=== PATIENT | female | born 1965 | race Caucasian/White ===

== ENCOUNTER 2020-04-18 19:37 | Emergency (ER) | payer BC, OTHER ==
--- NOTE | 2020-04-18 20:19 | RAD REPORT ---
EXAM DESCRIPTION: RAD - Wrist Right 3 View - 04/18/2020 8:11 pm CLINICAL HISTORY: PAIN Pain COMPARISON: <Comparisons> FINDINGS: No fracture or dislocation seen. No foreign body or other soft tissue abnormality. IMPRESSION: Negative examination.
--- NOTE | 2020-04-18 20:28 | EDPHYS ---
Physician Documentation [facility] Name: Keyanna Salinas Age: 54 yrs Sex: Female : 1965 Arrival Date: 04/18/2020 Time: 19:40 Bed 25 Private MD: ED Physician Zheng Doyle HPI: 04/18 19:58 This 54 yrs old Female presents to ER via Unassigned with complaints of Fall rn Injury, Arm Injury. 19:58 Details of fall: The patient fell from a height, out of a tree. Onset: The rn symptoms/episode began/occurred 2 hour(s) ago. Associated injuries: The patient sustained right wrist. Severity of symptoms: At their worst the symptoms were moderate, in the emergency department the symptoms are unchanged. The patient has not experienced similar symptoms in the past. The patient has not recently seen a physician. Reports fall from tree house, 10-12 feet, was hanging, then fell, landed on right wrist/right knee/right ankle. Reports ambulatory and knee and ankle feel better, minimal pain, + right wrist pain and only on dorsiflexion. Denies head injury/LOC, remembers all events, no rib/chest pain/back pain/neck pain. . Historical: - Allergies: 19:45 Sulfa (Sulfonamide Antibiotics); jb4 - Home Meds: 19:45 Lisinopril Oral [Active]; Klonopin Oral [Active]; Alprazolam Oral [Active]; jb4 Chemotherapy Cream [Active]; - PMHx: 19:45 Hypertension; PTSD; Cancer; jb4 - PSHx: 19:45 Right arm; jb4 - Immunization history:: Adult Immunizations up to date. - Immunization history: Last tetanus immunization: - up to date. - Social history:: Smoking status: Patient denies any tobacco usage or history of. Patient uses alcohol, weekly. Patient/guardian denies using street drugs. - Family history:: not pertinent. - Hospitalizations: : No recent hospitalization is reported. ROS: 19:58 Constitutional: Negative for fever, chills, and weight loss, Eyes: Negative for injury, rn pain, redness, and discharge, Neck: Negative for injury, pain, and swelling, Cardiovascular: Negative for chest pain, palpitations, and edema, Respiratory: Negative for shortness of breath, cough, wheezing, and pleuritic chest pain, Abdomen/GI: Negative for abdominal pain, nausea, vomiting, diarrhea, and constipation, Back: Negative for injury and pain, MS/Extremity: + injury and pain to right wrist Skin: + abrasion right forearm Neuro: Negative for headache, weakness, numbness, tingling, and seizure. Exam: 19:58 Constitutional: This is a well developed, well nourished patient who is awake, alert, rn and in no acute distress. Ambulatory to room. Head/Face: Normocephalic, atraumatic. Eyes: Pupils equal round and reactive to light, Periorbital areas with no swelling, redness, or edema. Neck: Supple, full range of motion without nuchal rigidity, or vertebral point tenderness Skin: + superficial abrasion right volar forearm, no laceration. MS/ Extremity: Pulses equal, no cyanosis. Neurovascular intact. + mild pain with dorsiflexion right wrist, no bony tenderness of radius/ulna, no bony tenderness in hand. Minimal tenderness over right carpals. Neuro: Awake and alert, GCS 15, oriented to person, place, time, and situation. Cranial nerves II-XII grossly intact. Motor strength 5/5 in all extremities. Sensory grossly intact. Cerebellar exam normal. Normal gait. Vital Signs: 19:45 BP 185 / 88; Pulse 76; Resp 16; Temp 97.9; Pulse Ox 98% on R/A; Weight 65.77 kg (R); jb4 Height 5 ft. 4 in. (162.56 cm) (R); Pain 10/10; 20:45 BP 140 / 63; Pulse 88; Resp 16; Pulse Ox 98% on R/A; jb4 19:45 Body Mass Index 24.89 (65.77 kg, 162.56 cm) jb4 Jonny Coma Score: 19:45 Eye Response: spontaneous(4). Verbal Response: oriented(5). Motor Response: obeys jb4 commands(6). Total: 15. 20:45 Eye Response: spontaneous(4). Verbal Response: oriented(5). Motor Response: obeys jb4 commands(6). Total: 15. Trauma Score (Adult): 19:45 Eye Response: spontaneous(1); Verbal Response: oriented(1); Motor Response: obeys jb4 commands(2); Systolic BP: > 89 mm Hg(4); Respiratory Rate: 10 to 29 per min(4); Jonny Score: 15; Trauma Score: 12 20:45 Eye Response: spontaneous(1); Verbal Response: oriented(1); Motor Response: obeys jb4 commands(2); Systolic BP: > 89 mm Hg(4); Respiratory Rate: 10 to 29 per min(4); [place] Score: 15; Trauma Score: 12 MDM: 19:50 Patient medically screened. rn 20:26 Differential diagnosis: contusion, fracture, sprain, strain. Differential diagnosis: rn abrasion. Data reviewed: vital signs. Test interpretation: by ED physician or midlevel provider: plain radiologic studies, Xray right wrist neg for fracture/dislocation. Counseling: I had a detailed discussion with the patient and/or guardian regarding: the historical points, exam findings, and any diagnostic results supporting the discharge/admit diagnosis, radiology results, the need for outpatient follow up, to return to the emergency department if symptoms worsen or persist or if there are any questions or concerns that arise at home. Response to treatment: the patient's symptoms have mildly improved after treatment, and as a result, I will discharge patient. Special discussion: I discussed with the patient/guardian in detail that at this point there is no indication for admission to the hospital. It is understood, however, that if the symptoms persist or worsen the patient needs to return immediately for re-evaluation. 04/18 19:58 Order name: XRAY Wrist RIGHT 3 view; Complete Time: 20:25 rn 04/18 20:32 Order name: Splint - Volar Wrist Splint; Complete Time: 20:51 rn Administered Medications: 20:36 Drug: Motrin 800 mg Route: PO; jb4 20:45 Follow up: Response: No adverse reaction jb4 Disposition: 04/18/20 20:27 Discharged to Home. Impression: Contusion of right wrist, Unspecified sprain of right wrist. - Condition is Stable. - Discharge Instructions: Contusion, Wrist Pain, Wrist Sprain. - Medication Reconciliation Form, Thank You Letter, Antibiotic Education, Prescription Opioid Use form. - Follow up: Private Physician; When: As needed; Reason: Recheck today's complaints, Re-evaluation by your physician. - Problem is new. - Symptoms have improved. Signatures: Dispatcher [employer] EDMS Paulo Cornejo PA PA jmm Nieto, Roman, MD MD rn Bryson, James, RN RN jb4 Corrections: (The following items were deleted from the chart) 20:01 19:58 Constitutional: Negative for fever, chills, and weight loss, Eyes: Negative for rn injury, pain, redness, and discharge, Neck: Negative for injury, pain, and swelling, Cardiovascular: Negative for chest pain, palpitations, and edema, Respiratory: Negative for shortness of breath, cough, wheezing, and pleuritic chest pain, Abdomen/GI: Negative for abdominal pain, nausea, vomiting, diarrhea, and constipation, Back: Negative for injury and pain, MS/Extremity: + injury and pain to right wrist Skin: Negative for injury, rash, and discoloration, Neuro: Negative for headache, weakness, numbness, tingling, and seizure, rn 20:51 20:27 04/18/2020 20:27 Discharged to Home. Impression: Contusion of right wrist; jb4 Unspecified sprain of right wrist. Condition is Stable. Forms are Medication Reconciliation Form, Thank You Letter, Antibiotic Education, Prescription Opioid Use. Follow up: Private Physician; When: As needed; Reason: Recheck today's complaints, Re-evaluation by your physician. Problem is new. Symptoms have improved. rn
--- NOTE | 2020-04-18 20:28 | ER ---
Nurse's Notes [facility] Name: Keyanna Salinas Age: 54 yrs Sex: Female : 1965 Arrival Date: 04/18/2020 Time: 19:40 Bed 25 Private MD: Diagnosis: Contusion of right wrist;Unspecified sprain of right wrist Presentation: 04/18 19:45 Chief complaint: Patient states: I was helping my son measure for repairs on his tree jb4 house. I fell through a rotten spot on the deck and fell 10-12 feet. I am having pain in my right wrist that radiates to my collar bone that just wont go away. Its that same feeling you get with a broken bone, constant dull, throbbing and aching. 19:45 Care prior to arrival: None. Mechanism of Injury: Fall approximately 12 feet. Trauma jb4 event details: Injury occurred in the [facility]. 19:45 Acuity: DOMENICA 3 jb4 19:45 Method Of Arrival: Ambulatory jb4 19:45 Coronavirus screen: Client denies travel out of the [place] in the last 14 days. At this jb4 time, the client does not indicate any symptoms associated with coronavirus-19. Ebola Screen: Patient negative for fever greater than or equal to 101.5 degrees Fahrenheit, and additional compatible Ebola Virus Disease symptoms. Initial Sepsis Screen: Does the patient meet any 2 criteria? No. Patient's initial sepsis screen is negative. Does the patient have a suspected source of infection? No. Patient's initial sepsis screen is negative. Risk Assessment: Do you want to hurt yourself or someone else? Patient reports no desire to harm self or others. 19:45 Onset of symptoms was April 18, 2020. Transition of care: patient was not received jb4 from another setting of care. Trauma Activation: Alert Physician: ED Physician; Name: Yanira; Notified At: 20:00; Arrived At: 20:00 Physician: General Surgeon; Name: ; Notified At: 20:00; Arrived At: Physician: Radiology; Name: Jomar; Notified At: 20:00; Arrived At: 20:00 Physician: Respiratory; Name: ; Notified At: 20:00; Arrived At: Physician: Lab; Name: ; Notified At: 20:00; Arrived At: Historical: - Allergies: 19:45 Sulfa (Sulfonamide Antibiotics); jb4 - Home Meds: 19:45 Lisinopril Oral [Active]; Klonopin Oral [Active]; Alprazolam Oral [Active]; jb4 Chemotherapy Cream [Active]; - PMHx: 19:45 Hypertension; PTSD; Cancer; jb4 - PSHx: 19:45 Right arm; jb4 - Immunization history:: Adult Immunizations up to date. - Immunization history: Last tetanus immunization: - up to date. - Social history:: Smoking status: Patient denies any tobacco usage or history of. Patient uses alcohol, weekly. Patient/guardian denies using street drugs. - Family history:: not pertinent. - Hospitalizations: : No recent hospitalization is reported. Screenin:45 Abuse screen: Denies threats or abuse. Tuberculosis screening: No symptoms or risk jb4 factors identified. 19:45 Nutritional screening: No deficits noted. Fall Risk None identified. jb4 Primary Survey: 19:45 NO uncontrolled hemorrhage observed. A: The patient is alert. Airway: patent, No jb4 supplemental oxygen in use on arrival. Oral cavity: clear, gag reflex present, Trachea midline. Breathing/Chest: Respiratory pattern: regular, Respiratory effort: spontaneous, unlabored, Chest inspection: symmetrical rise and fall of the chest. Circulation: Pulses: palpable right radial artery. Skin color: pink, Skin temperature: warm, dry. Disability Alert. Exposure/Environment: All clothing and personal items were removed. Forensic evidence collection is not deemed to be indicated at this time. Items placed in patient belonging bag. A warming method has been applied: A warm blanket has been provided to the patient. 20:45 Reassessment Airway Airway Patent Oxygen No O2 Oral cavity Clear +Gag reflex jb4 Breathing/Chest Respiratory pattern Regular Respiratory effort Spontaneous Unlabored Circulation Pulses Palpable Color [place] Temperature Warm Dry Disability Alert. Secondary Survey: 19:45 HEENT: No deficits noted. Gastrointestinal: No deficits noted. : No deficits noted. jb4 No signs and/or symptoms were reported regarding the genitourinary system. Musculoskeletal: Circulation, motion, and sensation intact. Range of motion: intact in all extremities. Injury Description: Abrasion sustained to dorsal aspect of right forearm is scabbed, was sustained 1-2 hours ago. Assessment: 19:45 General: Appears in no apparent distress. uncomfortable, Behavior is calm, cooperative, jb4 appropriate for age. Pain: Complains of pain in right arm Pain radiates to right clavicle Pain currently is 10 out of 10 on a pain scale. Quality of pain is described as aching, dull, throbbing, Pain began 2 hours ago. Neuro: Level of Consciousness is awake, alert, obeys commands, Oriented to person, place, time, situation. Cardiovascular: Patient's skin is warm and dry. Respiratory: Airway is patent Respiratory effort is even, unlabored, Respiratory pattern is regular, symmetrical. GI: No signs and/or symptoms were reported involving the gastrointestinal system. : No signs and/or symptoms were reported regarding the genitourinary system. EENT: No signs and/or symptoms were reported regarding the EENT system. Derm: Skin is intact, Skin is pink, warm \T\ dry. Musculoskeletal: Circulation, motion, and sensation intact. Range of motion:. Injury Description: Abrasion sustained to dorsal aspect of right forearm is scabbed, was sustained 1-2 hours ago. 20:45 Reassessment: Patient appears in no apparent distress at this time. Patient and/or jb4 family updated on plan of care and expected duration. Pain level reassessed. Patient is alert, oriented x 3, equal unlabored respirations, skin warm/dry/pink. Vital Signs: 19:45 BP 185 / 88; Pulse 76; Resp 16; Temp 97.9; Pulse Ox 98% on R/A; Weight 65.77 kg (R); jb4 Height 5 ft. 4 in. (162.56 cm) (R); Pain 10/10; 20:45 BP 140 / 63; Pulse 88; Resp 16; Pulse Ox 98% on R/A; jb4 19:45 Body Mass Index 24.89 (65.77 kg, 162.56 cm) jb4 Jonny Coma Score: 19:45 Eye Response: spontaneous(4). Verbal Response: oriented(5). Motor Response: obeys jb4 commands(6). Total: 15. 20:45 Eye Response: spontaneous(4). Verbal Response: oriented(5). Motor Response: obeys jb4 commands(6). Total: 15. Trauma Score (Adult): 19:45 Eye Response: spontaneous(1); Verbal Response: oriented(1); Motor Response: obeys jb4 commands(2); Systolic BP: > 89 mm Hg(4); Respiratory Rate: 10 to 29 per min(4); Jonny Score: 15; Trauma Score: 12 20:45 Eye Response: spontaneous(1); Verbal Response: oriented(1); Motor Response: obeys jb4 commands(2); Systolic BP: > 89 mm Hg(4); Respiratory Rate: 10 to 29 per min(4); [place] Score: 15; Trauma Score: 12 ED Course: 19:40 Patient arrived in ED. cl3 19:45 Patient has correct armband on for positive identification. Bed in low position. Call jb4 light in reach. Side rails up X 1. 19:45 Arm band placed on right wrist. jb4 19:45 Patient maintains SpO2 saturation greater than 95% on room air. Thermoregulation: warm jb4 blanket given to patient. 19:50 Zheng Doyle MD is Attending Physician. rn 20:02 Priyank Gibbs RN is Primary Nurse. jb4 20:04 Triage completed. jb4 20:11 XRAY Wrist RIGHT 3 view In Process Unspecified. EDMS 20:45 No provider procedures requiring assistance completed. Patient did not have IV access jb4 during this emergency room visit. Administered Medications: 20:36 Drug: Motrin 800 mg Route: PO; jb4 20:45 Follow up: Response: No adverse reaction jb4 Intake: 20:45 PO: 0ml; Total: 0ml. jb4 Output: 20:45 Urine: 0ml; Total: 0ml. jb4 Outcome: 20:27 Discharge ordered by . rn 20:45 Discharged to home ambulatory. jb4 20:45 Condition: stable 20:45 Discharge instructions given to patient, Instructed on discharge instructions, follow up and referral plans. Demonstrated understanding of instructions, follow-up care. 20:45 Patient's length of stay was not longer than 2 hours. jb4 20:51 Patient left the ED. jb4 Signatures: Dispatcher [employer] EDMS Zheng Doyle MD MD rn Bryson, James, RN RN [email or web address] Preet Anaya cl3
[2020-04-18] MEDS ORDERED: IBUPROFEN 400 MG TAB ONE (20:49)
[2020-04-23 21:22] VITALS: TEMP 97.9; O2SAT 98
[2020-04-23 21:28] VITALS: BP 140/63
== END 2020-04-18 20:51 | disposition home or self-care (01) ==
LOC: ER 19:37
DX: S63.501A Unspecified sprain of right wrist, initial encounter (principal); W14.XXXA Fall from tree, initial encounter; Y93.89 Activity, other specified; Y92.9 Unspecified place or not applicable; Z88.2 Allergy status to sulfonamides; I10 Essential (primary) hypertension; F43.10 Post-traumatic stress disorder, unspecified
CPT/HCPCS: 99284; G0390